=== PATIENT | male | born 1975 | race Caucasian/White ===

== ENCOUNTER 2022-07-18 18:32 | Observation (INO) ==
[2022-07-18] MEDS ORDERED: Ondansetron 4 MG/2 ML VIAL IVP PRN (21:15)
[2022-07-18] MEDS ORDERED: 0.9 % Sodium Chloride 1,000 ML IVC SCH (21:15)
[2022-07-18 22:33] VITALS: O2SAT 99
[2022-07-19] MEDS ORDERED: Piperacillin/Tazobactam 3.375 GM in 0.9 % Sodium Chloride Mini Bag 100 ML IVPB SCH
[2022-07-19 02:52] LABS: Basophils % 0.2 %; Eosinophils % 0.7 %; Hematocrit 36.9 % (37.5-50.1); Immature Granulocytes % 0.5 % (0-4); Lymphocytes # 1.3 K/mcL (0.6-4.6); Lymphocytes % 30.4 %; Mean Corpuscular HGB Conc 35.2 g/dL (31.6-35.5); Mean Corpuscular Hemoglobin 31.7 pg (28.0-33.3); Mean Platelet Volume 10.3 fL (9.4-12.4); Monocytes # 0.4 K/mcL (0.0-1.3); Monocytes % 10.4 %; Neutrophils # 2.5 K/mcL (1.6-8.9); Platelet Count 131 K/mcL (140-400); Red Cell Distribution Width 11.5 % (11.5-14.5); Segmented Neutrophils % 57.8 %; White Blood Count 4.3 K/mcL (4.3-11.1)
[2022-07-19 08:02] VITALS: BP 129/74; PULSE 48; TEMP 98.1
== END 2022-07-19 09:48 | disposition home or self-care (01) ==
LOC: 3BNU
PROVIDERS: ADMIT Surgery; ATTEND Surgery